=== PATIENT | male | born 1935 | race Caucasian/White ===

== ENCOUNTER 2017-12-25 02:28 | Outpatient (CLI) | payer MEDICARE | END 2017-12-25 02:29 | disposition critical access hospital (66) | LOC: EMS 02:28 | PROVIDERS: ATTEND Surgery | DX: R07.9 Chest pain, unspecified (principal) | CPT/HCPCS: A0425; A0427 ==

== ENCOUNTER 2017-12-25 02:39 | Inpatient (IN) | payer MEDICARE ==
--- NOTE | 2017-12-25 03:07 | ED Physician Documentation ---
PD HPI CHEST PAIN - Stated complaint Stated Complaint: WEAKNESS, DIZZY, CHEST PX - Chief complaint Chief Complaint: Cardiac - History obtained from History obtained from: Patient, EMS - History of Present Illness Timing - onset: Today Timing - onset during: Light activity, Exertion Timing - details: Gradual onset, Still present Quality: Pressure, Tightness Location: Substernal Worsened by: Exertion Similar symptoms before: Work up / diagnostics, Treatment Recently seen: Not recently seen - Additional information Additional information: Patient is an 86 year old male with a history of htn and a pacemaker in place who is presenting to the emergency department for chest pain and htn. According to patient and ems patient had fallen a few weeks ago and gets intermittent pain. Patient states that tonight he was cleaning his floors when he developed pain in his chest. Patient went to bed and took some aspirin. Patient states that he was unable to sleep and was feeling weak so he took his blood pressure which was elevated. Patient called ems. ems treated the patient with nitroglycerin which helped the pain slightly. Review of Systems Constitutional: denies: Fever, Chills Eyes: reports: Reviewed and negative Ears: reports: Reviewed and negative Nose: reports: Reviewed and negative Cardiac: reports: Chest pain / pressure, Palpitations, Pedal edema Respiratory: denies: Dyspnea, Cough GI: denies: Nausea, Vomiting : reports: Reviewed and negative Neurologic: reports: Generalized weakness. denies: Focal weakness PD PAST MEDICAL HISTORY - Past Medical History Cardiovascular: Hypertension, Atrial fibrillation, Other Respiratory: None Endocrine/Autoimmune: Other GI: Other : Benign prostate hypertrophy HEENT: Chronic hearing loss, Other Psych: None Musculoskeletal: Osteoarthritis Derm: Other - Past Surgical History Past Surgical History: Yes General: Appendectomy, Colonoscopy Ortho: Arthroscopic surgery Cardiovascular: Pacemaker HEENT: Tonsil/Adenoidectomy - Present Medications Home Medications: Ambulatory Orders Medication Instructions Recorded Confirmed Lisinopril [Zestril] 20 mg PO QPM 05/09/13 02/23/15 Triamterene/Hydrochlorothiazid 1 each PO QAM 05/09/13 02/23/15 [Triamterene-Hctz 37.5-25 mg Tb] amLODIPine [Norvasc] 10 mg PO DAILY 01/07/14 02/23/15 Isosorbide Mononitrate [Isosorbide 30 mg PO DAILY 04/28/14 02/23/15 Mononitrate ER] Finasteride 5 mg PO DAILY 02/19/15 02/23/15 Metoprolol Succinate [Toprol Xl] 25 mg PO DAILY 02/19/15 02/23/15 - Allergies Allergies/Adverse Reactions: Allergies Allergy/AdvReac Type Severity Reaction Status Date / Time penicillin G Allergy Intermediate Rash Verified 12/25/17 02:47 losartan [Losartan] AdvReac Itching Verified 12/25/17 02:47 adhesives Allergy Intermediate Itching Uncoded 12/25/17 02:47 - Social History Does the pt smoke?: No Smoking Status: Never smoker Does the pt drink ETOH?: Yes Does the pt have substance abuse?: No - Immunizations Immunizations are current?: Yes - POLST Patient has POLST: No PD ED PE NORMAL - Vitals Vital signs reviewed: Yes - General General: Alert and oriented X 3, No acute distress - HEENT HEENT: Atraumatic - Neck Neck: Supple, no meningeal sign, No JVD - Respiratory Respiratory: No respiratory distress - Abdomen Abdomen: Soft, Non tender, Non distended - Derm Derm: Normal color PD ED PE EXPANDED - Cardiac Cardiac: Regular Rate, Other (pacemaker in place) - Extremities Extremities: Pedal edema bilateral Results - Vitals Vitals: Vital Signs - 24 hr 12/25/17 12/25/17 12/25/17 02:40 03:00 03:15 Temperature 36.3 C L Heart Rate 66 61 60 Respiratory 16 16 16 Rate Blood Pressure 189/115 H 169/97 H 166/98 H O2 Saturation 93 93 93 12/25/17 12/25/17 03:40 04:06 Temperature Heart Rate 65 61 Respiratory 16 16 Rate Blood Pressure 129/90 H 166/82 H O2 Saturation 91 L 94 Oxygen O2 Source Room air - EKG (time done) 0248 Rate: Rate (enter#) (63) Rhythm: Paced - Labs Labs: Laboratory Tests 12/25/17 12/25/17 12/25/17 03:00 03:00 03:00 WBC 5.9 RBC 4.25 L Hgb 14.5 Hct 42.4 MCV 99.8 H MCH 34.0 H MCHC 34.1 RDW 12.8 Plt Count 169 MPV 9.0 Neut # (Auto) 2.6 Lymph # (Auto) 2.1 [place] # (Auto) 0.6 Eos # (Auto) 0.4 Baso # (Auto) 0.1 Absolute Nucleated RBC 0.00 Nucleated RBC % 0.0 D-Dimer Sodium 132 L Potassium 3.3 L Chloride 96 L Carbon Dioxide 26 Anion Gap 10.0 BUN 22 H Creatinine 1.1 Estimated GFR (MDRD) 64 L Glucose 101 H Calcium 8.8 Total Bilirubin 1.2 H AST 36 ALT 39 Alkaline Phosphatase 68 Troponin I < 0.04 B-Natriuretic Peptide Total Protein 6.6 L Albumin 3.9 Globulin 2.7 Albumin/Globulin Ratio 1.4 Lipase 25 12/25/17 12/25/17 03:00 03:00 WBC RBC Hgb Hct MCV MCH MCHC RDW Plt Count MPV Neut # (Auto) Lymph # (Auto) [place] # (Auto) Eos # (Auto) Baso # (Auto) Absolute Nucleated RBC Nucleated RBC % D-Dimer 212.5 Sodium Potassium Chloride Carbon Dioxide Anion Gap BUN Creatinine Estimated GFR (MDRD) Glucose Calcium Total Bilirubin AST ALT Alkaline Phosphatase Troponin I B-Natriuretic Peptide 286 H Total Protein Albumin Globulin Albumin/Globulin Ratio Lipase - Rads (name of study) chest x-ray Radiology: Final report received (normal) PD MEDICAL DECISION MAKING - ED course Complexity details: reviewed old records, reviewed results, re-evaluated patient , d/w patient ED course: Patient was seen and examined at bedside. ekg was performed which showed a paced rhythm. labs were drawn. chest x-ray was ordered. Patient had already taken aspirin. additional nitro was ordered for the patient. Patient's diagnostics were within normal limits. That being said patient had a heart score of 5 and was appropriate for further care. Case was discussed with the hospitalist and patient was admitted for further evaluation and care. Departure - Departure Disposition: ED Place in Observation Clinical Impression: Chest pain Condition: Good
[2017-12-25] MEDS ORDERED: NITROGLYCERIN SL 0.4 MG TABLET SL STA (03:10)
[2017-12-25 03:13] LABS: BASOPHILS # (AUTO) 0.1 10^3/uL (0.0-0.1); BASOPHILS % (AUTO) 1.2 %; EOSINOPHILS # (AUTO) 0.4 10^3/uL (0.0-0.7); EOSINOPHILS % (AUTO) 7.3 %; HGB - HEMOGLOBIN 14.5 g/dL (14.0-18.0); LYMPHOCYTES # (AUTO) 2.1 10^3/uL (1.5-3.5); LYMPHOCYTES % (AUTO) 36.5 %; MEAN CORPUSCULAR HGB CONC 34.1 g/dL (32.0-36.0); MEAN CORPUSCULAR VOLUME 99.8 fL (80.0-94.0); MONOCYTES # (AUTO) 0.6 10^3/uL (0.0-1.0); MONOCYTES % (AUTO) 9.9 %; NEUTROPHILS # (AUTO) 2.6 10^3/uL (1.5-6.6); NEUTROPHILS % (AUTO) 45.1 %; PLT - PLATELET COUNT 169 10^3/uL (130-450); RED BLOOD COUNT 4.25 10^6/uL (4.70-6.10); RED CELL DISTRIBUTION WIDTH 12.8 % (12.0-15.0); WHITE BLOOD COUNT 5.9 x10^3/uL (4.8-10.8)
--- NOTE | 2017-12-25 03:15 | XRAY Preliminary Report ---
Exam: XR CHEST 1 VIEW X-RAY IMPRESSION: No evidence of acute cardiopulmonary disease. [facility] SITE ID: [id number]
--- NOTE | 2017-12-25 03:16 | XRAY Report ---
EXAM: CHEST RADIOGRAPHY EXAM DATE: 12/25/2017 03:02 AM. CLINICAL HISTORY: Chest pain. COMPARISON: 04/28/2014. TECHNIQUE: 1 view. FINDINGS: Lungs/Pleura: No focal opacities evident. No pleural effusion. No pneumothorax. Mediastinum: Within exam limitations, the cardiomediastinal contour is normal. Other: New left subclavian pacemaker. IMPRESSION: No evidence of acute cardiopulmonary disease. [facility] Referring Provider Line: [phone] SITE ID: [id number]
[2017-12-25 03:23] LABS: ALBUMIN 3.9 g/dL (3.2-5.5); ALBUMIN/GLOBULIN RATIO 1.4 (1.0-2.2); BILIRUBIN,TOTAL 1.2 mg/dL (0.2-1.0); CALCIUM 8.8 mg/dL (8.5-10.3); CREATININE 1.1 mg/dL (0.6-1.2); TOTAL PROTEIN 6.6 g/dL (6.7-8.2)
[2017-12-25] MEDS ORDERED: PROCHLORPERAZINE 10 MG/2 ML VIAL IVP PRN (03:53)
[2017-12-25] MEDS ORDERED: ONDANSETRON 4 MG/2 ML VIAL IVP PRN (03:53)
[2017-12-25] MEDS ORDERED: MORPHINE 2 MG/ML SYRINGE IVP PRN (03:53)
[2017-12-25] MEDS ORDERED: NITROGLYCERIN SL 0.4 MG TABLET SL PRN (03:53)
[2017-12-25] MEDS ORDERED: SODIUM CHLORIDE FLUSH 0.9% 10 ML SYRINGE IVP PRN (03:53)
[2017-12-25] MEDS ORDERED: ZOLPIDEM 5 MG TABLET PO PRN (03:53)
[2017-12-25] MEDS ORDERED: PROMETHAZINE 25 MG/1 ML VIAL IM PRN (03:53)
[2017-12-25] MEDS ORDERED: ACETAMINOPHEN 325 MG TABLET PO PRN (03:53)
[2017-12-25] MEDS ORDERED: NS W/20 MEQ KCL 1,000 ML IV SCH (04:00)
--- NOTE | 2017-12-25 04:01 | HISTORY & PHYSICAL EXAMINATION ---
Chief Complaint - Chief Complaint Chief Complaint: Chest pain History of Present Illness - Admitted From Admitted From:: Emergency Department - History Obtained From Records Reviewed: Yes History obtained from: Patient Exam Limitations: None - History of Present Illness HPI Comment/Other: Patient is a very pleasant 82-year-old gentleman with a past medical history significant for hypertension, status post pacemaker due to bradycardia, BPH, atrial fibrillation on Pradaxa and vertigo who presented to the emergency department with a chief complaint of chest pain. The patient states that on December 11 he had a fall due to feeling vertigo and having difficulty with his balance. He states that he fell on his chest and thinks he may have sprained a muscle or hurt her rib. He states that since then he has been experiencing pain in the lower chest wall on the left side near 1 of his ribs. He states that the pain has been getting better over the last 2 weeks or so. He states that today he was scrubbing the floor when he noticed that the chest pain became more pronounced. He states that when he tried to get up he felt very weak and just did not feel right. He denies any radiation of the pain, he denies any associated shortness of breath, denies any nausea, he denies any diaphoresis and denies any palpitations. He states that he then checked his blood pressure and it was very elevated at 180/110. He states he then decided to take an aspirin and for nitroglycerin. He states he tried to go to bed hoping that the pain and funny feeling would resolve. He states that he could not sleep thinking whether he should go to the emergency department. He finally decided to call 911. The patient states that his chest pain persisted and even after EMS arrived and he received several more doses of nitroglycerin his pain did not completely resolve but he did feel that it improved slightly. He states that the chest pain was probably only a 4 out of 5 out of 10 at its worst. He describes the pain as a dull pain. He states that it still there when he takes a deep breath but states that at this point it is almost gone. Patient admits to a headache after receiving many doses of nitroglycerin. Denies any blurred vision, runny nose, sore throat, nasal congestion, difficulty swallowing, shortness of air, cough, fevers, chills, orthopnea, PND, increased lower extremity swelling, abdominal pain, nausea, vomiting, diarrhea, constipation, urinary urgency, dysuria, joint pain, joint swelling, muscle aches , back pain, neck stiffness, skin rash, hair loss, polyuria, polydipsia, night sweats, recent unintentional weight loss, changes in his appetite or any focal neurologic deficits. On presentation to the emergency department the patient was afebrile he did not appear to be in any respiratory distress but was hypertensive with blood pressure of 189/115. The patient was given a dose of nitroglycerin in the emergency department and slowly the patient's blood pressure did improve down to 129/90. The patient underwent a EKG which compared to his EKG from 4 years ago showed some T-wave inversions and flattening in the anterior leads. Otherwise the EKG was paced. The patient's lab work revealed a normal d-dimer, normal CBC, slightly decreased potassium and a mild hyponatremia. The patient had a negative troponin. Given the patient's risk factors of age and hypertension it was felt that the patient should be placed in observation for rule out of acute coronary syndrome and stress test. History - Past Medical History Cardiovascular: reports: Hypertension, Atrial fibrillation, Other Respiratory: reports: None Endocrine/Autoimmune: reports: Other GI: reports: Other : reports: Benign prostate hypertrophy HEENT: reports: Chronic hearing loss, Other Psych: reports: None Musculoskeletal: reports: Osteoarthritis Derm: reports: Other MRSA Hx?: No - Past Surgical History General: reports: Appendectomy, Colonoscopy Ortho: reports: Arthroscopic surgery Cardiovascular: reports: Pacemaker HEENT: reports: Tonsil/Adenoidectomy - Family & Social History Family History: Mother: , CVA/TIA, Hypertension, Father: , CAD Living arrangement: At home Living Situation: Alone Social History Notes: Patient lives alone in [place], [place]. He spent 6 months of the year here and 6 months of the year in [facility] where [place]. The patient has 1 son who lives in [place]. He is . He is fully independent and still quite active. He smoked cigarettes for very short period of time and quit many years ago. He drinks a glass of wine rarely and denies any illicit drug use. - POLST Patient has POLST: No POLST Status: DNR Meds/Allgy - Home Medications Home Medications: Ambulatory Orders Medication Instructions Recorded Confirmed Lisinopril [Zestril] 20 mg PO QPM 05/09/13 02/23/15 Triamterene/Hydrochlorothiazid 1 each PO QAM 05/09/13 02/23/15 [Triamterene-Hctz 37.5-25 mg Tb] amLODIPine [Norvasc] 10 mg PO DAILY 01/07/14 02/23/15 Isosorbide Mononitrate [Isosorbide 30 mg PO DAILY 04/28/14 02/23/15 Mononitrate ER] Finasteride 5 mg PO DAILY 02/19/15 02/23/15 Metoprolol Succinate [Toprol Xl] 25 mg PO DAILY 02/19/15 02/23/15 - Allergies Allergies/Adverse Reactions: Allergies Allergy/AdvReac Type Severity Reaction Status Date / Time penicillin G Allergy Intermediate Rash Verified 12/25/17 02:47 losartan [Losartan] AdvReac Itching Verified 12/25/17 02:47 adhesives Allergy Intermediate Itching Uncoded 12/25/17 02:47 Review of Systems - Other Findings Other Findings: A comprehensive review of systems was performed the pertinent positives and negatives are stated above in the HPI and the remainder of the review of systems is negative. Exam - Vital Signs Reviewed Vital Signs: Yes Vital Signs: Vital Signs x48h Temp Pulse Resp BP Pulse Ox 12/25/17 03:40 65 16 129/90 H 91 L 12/25/17 03:15 60 16 166/98 H 93 12/25/17 03:00 61 16 169/97 H 93 12/25/17 02:40 36.3 C L 66 16 189/115 H 93 - Physical Exam General Appearance: positive: No acute distress, Alert Eyes Bilateral: positive: Normal inspection, PERRL, No lid inflammation, Conjunctivae nml, No scleral icterus ENT: positive: ENT inspection nml, Pharynx nml, Dry mucous membranes. negative : Purulent nasal drainage, Pharyngeal erythema, Oral lesions Neck: positive: Nml inspection, Thyroid nml, No JVD, Trachea midline Respiratory: positive: No respiratory distress, Breath sounds nml Cardiovascular: positive: Regular rate & rhythm, No murmur, No gallop, Other ( Patient has chest wall tenderness in the left lower ribs) Peripheral Pulses: positive: 2+ Abdomen: positive: Non-tender, No organomegaly, Nml bowel sounds, No distention Back: positive: Nml inspection. negative: CVA tenderness (R), CVA tenderness (L ) Skin: positive: Color nml, No rash, Warm, Dry Extremities: positive: Non-tender, Full ROM, Nml appearance Neurologic/Psychiatric: positive: Oriented x3, CN's nml (2-12), Motor nml, Sensation nml, Mood/affect nml Conclusion/Plan - Problem List (1) Chest pain Conclusion/Plan: Patient presented with chest pain with exertion and feeling of generalized weakness while scrubbing the floor. The patient did state that he had a fall 2 weeks earlier and fell on his chest and has had pain in a similar area of his chest for the last 2 weeks and this was very similar to the pain that he felt when scrubbing the floor. He denied any associated shortness of breath or diaphoresis. The patient's initial EKG did show some mild nonspecific changes from previous EKG 4 years ago and troponin was negative. The patient's pain did improve with several doses of nitroglycerin. Given his age and risk factor hypertension this was concerning enough that we felt the patient needed to be placed in observation for rule out of ACS. It is possible that the patient's pain could have been due to his hypertension or could have been due to musculoskeletal pain from his previous fall but risk was too high therefore he was placed in observation. Plan: Troponins 3 Telemetry monitoring Aspirin and Lipitor Lipid profile Echocardiogram Stress test in the a.m. N.p.o. for stress test Qualifiers: Chest pain type: unspecified Qualified Code(s): R07.9 - Chest pain, unspecified (2) Hypertension Conclusion/Plan: Patient has history of hypertension and had significantly elevated blood pressure on presentation. Patient's blood pressure was elevated to 189/115. Patient's blood pressure did improve with nitroglycerin. Patient's symptoms also improved with improvement in his blood pressure. It is possible that the patient's chest pain could be secondary to his elevated blood pressure. We will treat his blood pressure by continuing his home medications and monitoring his blood pressure we may need to titrate medications during the hospitalization. Qualifiers: Hypertension type: essential hypertension Qualified Code(s): I10 - Essential (primary) hypertension (3) Atrial fibrillation Conclusion/Plan: Patient states that he has a history of atrial fibrillation which was noted on his pacemaker reading by his reconditioner. The patient is on Toprol-XL for rate control and Pradaxa for anticoagulation. Plan: Telemetry monitoring Continue Pradaxa Continue metoprolol Qualifiers: Atrial fibrillation type: chronic Qualified Code(s): I48.2 - Chronic atrial fibrillation (4) Hyponatremia Conclusion/Plan: Patient presented with hyponatremia with a sodium of 132. Patient appear to have hypovolemic hyponatremia. Patient placed on IV fluids and will monitor sodium daily. (5) Hypokalemia Conclusion/Plan: Patient had mild hypokalemia on presentation with a potassium of 3.2. Patient likely has hyponatremia secondary to hydrochlorothiazide. The patient however did also appear to be slightly dehydrated therefore he is given IV fluids and potassium replacement. - Lab Results Lab results reviewed: Yes Fish Bones: 12/25/17 03:00 12/25/17 03:00 Other Lab Results: Laboratory Results WBC 5.9 x10^3/uL (4.8-10.8) 12/25/17 03:00 RBC 4.25 10^6/uL (4.70-6.10) L 12/25/17 03:00 Hgb 14.5 g/dL (14.0-18.0) 12/25/17 03:00 Hct 42.4 % (42.0-52.0) 12/25/17 03:00 MCV 99.8 fL (80.0-94.0) H 12/25/17 03:00 MCH 34.0 pg (27.0-31.0) H 12/25/17 03:00 MCHC 34.1 g/dL (32.0-36.0) 12/25/17 03:00 RDW 12.8 % (12.0-15.0) 12/25/17 03:00 Plt Count 169 10^3/uL (130-450) 12/25/17 03:00 MPV 9.0 fL (7.4-11.4) 12/25/17 03:00 Neut # (Auto) 2.6 10^3/uL (1.5-6.6) 12/25/17 03:00 Lymph # (Auto) 2.1 10^3/uL (1.5-3.5) 12/25/17 03:00 [place] # (Auto) 0.6 10^3/uL (0.0-1.0) 12/25/17 03:00 Eos # (Auto) 0.4 10^3/uL (0.0-0.7) 12/25/17 03:00 Baso # (Auto) 0.1 10^3/uL (0.0-0.1) 12/25/17 03:00 Absolute Nucleated RBC 0.00 x10^3/uL 12/25/17 03:00 Nucleated RBC % 0.0 /100WBC 12/25/17 03:00 D-Dimer 212.5 ng/mL (200.0-255.0) 12/25/17 03:00 Sodium 132 mmol/L (135-145) L 12/25/17 03:00 Potassium 3.3 mmol/L (3.5-5.0) L 12/25/17 03:00 Chloride 96 mmol/L (101-111) L 12/25/17 03:00 Carbon Dioxide 26 mmol/L (21-32) 12/25/17 03:00 Anion Gap 10.0 (6-13) 12/25/17 03:00 BUN 22 mg/dL (6-20) H 12/25/17 03:00 Creatinine 1.1 mg/dL (0.6-1.2) 12/25/17 03:00 Estimated GFR (MDRD) 64 (>89) L 12/25/17 03:00 Glucose 101 mg/dL (70-100) H 12/25/17 03:00 Calcium 8.8 mg/dL (8.5-10.3) 12/25/17 03:00 Total Bilirubin 1.2 mg/dL (0.2-1.0) H 12/25/17 03:00 AST 36 IU/L (10-42) 12/25/17 03:00 ALT 39 IU/L (10-60) 12/25/17 03:00 Alkaline Phosphatase 68 IU/L (42-121) 12/25/17 03:00 Troponin I < 0.04 ng/mL (<0.49) 12/25/17 03:00 B-Natriuretic Peptide 286 pg/mL (5-100) H 12/25/17 03:00 Total Protein 6.6 g/dL (6.7-8.2) L 12/25/17 03:00 Albumin 3.9 g/dL (3.2-5.5) 12/25/17 03:00 Globulin 2.7 g/dL (2.1-4.2) 12/25/17 03:00 Albumin/Globulin Ratio 1.4 (1.0-2.2) 12/25/17 03:00 Lipase 25 U/L (22-51) 12/25/17 03:00 - Diagnostic Imaging Results Diagnostic Imaging Results: positive: Final report reviewed Diagnostic Imaging Results Comments: Chest x-ray Impression: No evidence of acute cardiopulmonary disease - EKG Results EKG Interpreted Independently: Yes EKG Findings: Paced with no ST elevations compared to previous EKG the patient does have some T-wave inversion in V4 and T-wave flattening in V5 along with T-wave inversion in V3. These are nonspecific changes. Core Measures - Anticipated LOS I expect patient to be DC'd or transferred within 96 hours.: Yes - DVT/VTE - Prophylaxis VTE/DVT Device ordered at admit?: Yes
[2017-12-25] MEDS: DABIGATRAN 75 MG CAPSULE PO SCH ×2 (05:39→21:34)
[2017-12-25] MEDS: SODIUM CHLORIDE FLUSH 0.9% 10 ML SYRINGE IVP SCH ×2 (07:22→17:31)
[2017-12-25] MEDS: ASPIRIN EC 81 MG TABLET PO SCH (07:58)
[2017-12-25] MEDS: FINASTERIDE 5 MG TABLET PO SCH (07:58)
[2017-12-25] MEDS: POLYETHYLENE GLYCOL 3350 17 GM PACKET PO SCH (07:59)
[2017-12-25] MEDS ORDERED: amLODIPine 5 MG TABLET PO SCH (09:00)
[2017-12-25] MEDS ORDERED: TRIAMT/HCTZ 37.5 MG/25 MG CAPSULE PO SCH (09:00)
[2017-12-25] MEDS ORDERED: ENOXAPARIN 40 MG/0.4 ML SYRINGE SUBQ SCH (09:00)
[2017-12-25] MEDS ORDERED: ISOSORBIDE MONONITRATE ER 30 MG TABLET PO SCH ×2 (09:00→09:30)
[2017-12-25] MEDS ORDERED: FAMOTIDINE 20 MG TABLET PO SCH (09:00)
[2017-12-25] MEDS ORDERED: METOPROLOL SUCCINATE 25 MG TABLET PO SCH ×2 (09:00→18:00)
[2017-12-25 09:02] LABS: ALBUMIN 4.1 g/dL (3.2-5.5); ALBUMIN/GLOBULIN RATIO 1.7 (1.0-2.2); ALKALINE PHOSPHATASE 66 IU/L (42-121); ALT ALANINE AMINOTRANSFERASE 37 IU/L (10-60); AST ASPARTATE AMINOTRANSFERASE 31 IU/L (10-42); BILIRUBIN,TOTAL 1.3 mg/dL (0.2-1.0); BUN - BLOOD UREA NITROGEN 21 mg/dL (6-20); CALCIUM 8.6 mg/dL (8.5-10.3); CARBON DIOXIDE - CO2 27 mmol/L (21-32); CHLORIDE 95 mmol/L (101-111); CHOL/HDL RATIO 3.8 (<5.0); CHOLESTEROL 141 mg/dL; CREATININE 1.2 mg/dL (0.6-1.2); GFR - MDRD 58 (>89); GLUCOSE 95 mg/dL (70-100); HDL CHOLESTEROL 37 mg/dL; LDL CHOLESTEROL,CALCULATED 89 mg/dL; LDL/HDL RATIO 2.4 (<3.6); SODIUM 132 mmol/L (135-145); TOTAL PROTEIN 6.5 g/dL (6.7-8.2); VLDL CHOLESTEROL 15 mg/dL
[2017-12-25 09:11] LABS: BASOPHILS % (AUTO) 0.7 %; EOSINOPHILS # (AUTO) 0.3 10^3/uL (0.0-0.7); HGB - HEMOGLOBIN 14.8 g/dL (14.0-18.0); LYMPHOCYTES # (AUTO) 1.7 10^3/uL (1.5-3.5); LYMPHOCYTES % (AUTO) 30.7 %; MEAN CORPUSCULAR HGB CONC 35.1 g/dL (32.0-36.0); MEAN CORPUSCULAR VOLUME 99.8 fL (80.0-94.0); MEAN PLATELET VOLUME 9.3 fL (7.4-11.4); MONOCYTES # (AUTO) 0.5 10^3/uL (0.0-1.0); MONOCYTES % (AUTO) 8.7 %; NEUTROPHILS # (AUTO) 3.1 10^3/uL (1.5-6.6); NEUTROPHILS % (AUTO) 54.9 %; PLT - PLATELET COUNT 160 10^3/uL (130-450); RED BLOOD COUNT 4.22 10^6/uL (4.70-6.10); RED CELL DISTRIBUTION WIDTH 13.1 % (12.0-15.0); WHITE BLOOD COUNT 5.6 x10^3/uL (4.8-10.8)
[2017-12-25] MEDS ORDERED: hydrALAZINE 25 MG TABLET PO SCH (10:00)
[2017-12-25] MEDS: hydrALAZINE 25 MG TABLET PO SCH ×4 (10:15→21:34)
[2017-12-25] MEDS ORDERED: REGADENOSON 0.4 MG/5 ML SYRINGE IVP ONE (10:41)
[2017-12-25] MEDS ORDERED: IOPAMIDOL-300 100 ML VIAL ONE (11:43)
--- NOTE | 2017-12-25 11:49 | PROVIDER PROGRESS NOTE ---
Subjective - Prog Note Date Prog Note Date: 12/25/17 Prog Note Time: 12:00 - Subjective Pt reports feeling: No change Subjective: Rufus complains of his primary problem of "high blood pressure". He denies SOB, ongoing or new chest pain, fever, chills, nausea, or vomiting. Current Medications - Current Medications Current Medications: Active Medications Acetaminophen (Tylenol) 650 mg PO Q4HR PRN PRN Reason: Pain 1 to 4 Amlodipine Besylate (Norvasc) 10 mg PO DAILY [facility] Last Admin: 12/25/17 07:58 Dose: 10 mg Aspirin (Ecotrin) 81 mg PO DAILY [facility] Last Admin: 12/25/17 07:58 Dose: 81 mg Atorvastatin Calcium (Lipitor) 80 mg PO QPM [facility] Dabigatran (Pradaxa) 150 mg PO BID [facility] Last Admin: 12/25/17 05:39 Dose: 150 mg Famotidine (Pepcid) 20 mg PO DAILY [facility] Last Admin: 12/25/17 07:58 Dose: 20 mg Finasteride (Proscar) 5 mg PO DAILY [facility] Last Admin: 12/25/17 07:58 Dose: 5 mg Hydralazine HCl (Apresoline) 25 mg PO QID [facility] Last Admin: 12/25/17 10:15 Dose: 25 mg Isosorbide Mononitrate (Imdur) 30 mg PO DAILY [facility] Lisinopril (Zestril) 20 mg PO QPM [facility] Metoprolol Succinate (Toprol Xl) 25 mg PO DAILY [facility] Last Admin: 12/25/17 07:58 Dose: 25 mg Morphine Sulfate (Morphine) 2 mg IVP Q5M PRN PRN Reason: Chest pain Nitroglycerin (Nitrostat) 0.4 mg SL Q5MIN PRN PRN Reason: Chest Pain Ondansetron HCl (Zofran Inj) 4 mg IVP Q6HR PRN PRN Reason: Nausea / Vomiting Polyethylene Glycol (Miralax) 17 gm PO DAILY [facility] Last Admin: 12/25/17 07:59 Dose: Not Given Prochlorperazine Edisylate (Compazine Inj) 10 mg IVP Q6HR PRN PRN Reason: Nausea / Vomiting Promethazine HCl (Phenergan Inj) 25 mg IM Q6HR PRN PRN Reason: Nausea / Vomiting Sodium Chloride (Normal Saline Flush 0.9%) 10 ml IVP PRN PRN PRN Reason: NEEDED PER PROVIDER ORDERS Last Admin: 12/25/17 05:17 Dose: 10 ml Sodium Chloride (Normal Saline Flush 0.9%) 10 ml IVP 0100,0900,1700 [facility] Last Admin: 12/25/17 07:22 Dose: Not Given Triamterene/HCTZ (Dyazide) 1 cap PO DAILY [facility] Last Admin: 12/25/17 07:58 Dose: 1 cap Zolpidem Tartrate (Ambien) 5 mg PO QPM PRN PRN Reason: Insomnia Lisinopril [Zestril] 40 mg PO BID 05/09/13 Triamterene/Hydrochlorothiazid [Triamterene-Hctz 37.5-25 mg Tb] 1 each PO QAM Isosorbide Mononitrate [Isosorbide Mononitrate ER] 30 mg PO DAILY 04/28/14 Finasteride 5 mg PO DAILY 02/19/15 Metoprolol Succinate 50 mg PO BID 12/25/17 Nitroglycerin [Nitrostat] 0.4 mg SL Q5MIN PRN 12/25/17 Omeprazole 20 mg PO DAILY PRN 12/25/17 Objective - Vital Signs/Intake & Output Reviewed Vital Signs: Yes Vital Signs: Vital Signs x48h Temp Pulse Pulse Resp BP BP Pulse Ox 12/25/17 10:15 59 L 146/85 H 12/25/17 07:52 36.3 C L 61 18 193/111 H 96 12/25/17 06:00 60 173/89 H 12/25/17 05:15 36.6 C 106 H 18 209/98 H 96 12/25/17 04:06 61 16 166/82 H 94 Intake & Output: Intake & Output 12/22/17 12/23/17 12/24/17 12/25/17 23:59 23:59 23:59 23:59 Intake Total 643.333 Output Total 250 Balance 393.333 - Objective General Appearance: positive: No acute distress, Alert Eyes Bilateral: positive: Normal inspection, PERRL Eyes: OU Conjunctivae pale ENT: positive: ENT inspection nml, Pharynx nml, No signs of dehydration Neck: positive: Nml inspection, Thyroid nml, No JVD, Trachea midline Respiratory: positive: Chest non-tender, No respiratory distress, Breath sounds nml Cardiovascular: positive: No gallop, Irregularly irregular, Systolic murmur, Decreased pulse(s) Peripheral Pulses: 1+ Radial (R), 1+ Radial (L) Abdomen: positive: Non-tender, No organomegaly, Nml bowel sounds, Other (rounded , soft.) Back: positive: Nml inspection Skin: positive: No rash, Warm, Dry Extremities: positive: Non-tender, Full ROM, Pedal edema, Joint swelling Neurologic/Psychiatric: positive: Oriented x3, CN's nml (2-12), Motor nml, Sensation nml Reflexes: Bicep (R): 3+, Bicep (L): 3+ - Lab Results Fish Bones: 12/25/17 08:30 12/25/17 08:30 Other Labs: Lab Results x24hrs 12/25/17 12/25/17 12/25/17 Range/Units 08:30 08:30 08:30 WBC (4.8-10.8) x10^3/uL RBC (4.70-6.10) 10^6/uL Hgb (14.0-18.0) g/dL Hct (42.0-52.0) % MCV (80.0-94.0) fL MCH (27.0-31.0) pg MCHC (32.0-36.0) g/dL RDW (12.0-15.0) % Plt Count (130-450) 10^3/uL MPV (7.4-11.4) fL Neut # (Auto) (1.5-6.6) 10^3/uL Lymph # (Auto) (1.5-3.5) 10^3/uL [place] # (Auto) (0.0-1.0) 10^3/uL Eos # (Auto) (0.0-0.7) 10^3/uL Baso # (Auto) (0.0-0.1) 10^3/uL Absolute Nucleated RBC x10^3/uL Nucleated RBC % /100WBC Sodium 132 L (135-145) mmol/L Potassium 3.5 (3.5-5.0) mmol/L Chloride 95 L (101-111) mmol/L Carbon Dioxide 27 (21-32) mmol/L Anion Gap 10.0 (6-13) BUN 21 H (6-20) mg/dL Creatinine 1.2 (0.6-1.2) mg/dL Estimated GFR (MDRD) 58 L (>89) Glucose 95 (70-100) mg/dL Calcium 8.6 (8.5-10.3) mg/dL Total Bilirubin 1.3 H (0.2-1.0) mg/dL AST 31 (10-42) IU/L ALT 37 (10-60) IU/L Alkaline Phosphatase 66 (42-121) IU/L Troponin I < 0.04 (<0.49) ng/mL B-Natriuretic Peptide 301 H (5-100) pg/mL Total Protein 6.5 L (6.7-8.2) g/dL Albumin 4.1 (3.2-5.5) g/dL Globulin 2.4 (2.1-4.2) g/dL Albumin/Globulin Ratio 1.7 (1.0-2.2) Triglycerides 77 ( - 149) mg/dL Cholesterol 141 ( - 199) mg/dL LDL Cholesterol, Calc 89 ( - 129) mg/dL VLDL Cholesterol 15 mg/dL HDL Cholesterol 37 L (60 - ) mg/dL LDL/HDL Ratio 2.4 (<3.6) Cholesterol/HDL Ratio 3.8 (<5.0) 06/05/18 Range/Units 08:30 WBC 5.6 (4.8-10.8) x10^3/uL RBC 4.22 L (4.70-6.10) 10^6/uL Hgb 14.8 (14.0-18.0) g/dL Hct 42.1 (42.0-52.0) % MCV 99.8 H (80.0-94.0) fL MCH 35.0 H (27.0-31.0) pg MCHC 35.1 (32.0-36.0) g/dL RDW 13.1 (12.0-15.0) % Plt Count 160 (130-450) 10^3/uL MPV 9.3 (7.4-11.4) fL Neut # (Auto) 3.1 (1.5-6.6) 10^3/uL Lymph # (Auto) 1.7 (1.5-3.5) 10^3/uL [place] # (Auto) 0.5 (0.0-1.0) 10^3/uL Eos # (Auto) 0.3 (0.0-0.7) 10^3/uL Baso # (Auto) 0.0 (0.0-0.1) 10^3/uL Absolute Nucleated RBC 0.00 x10^3/uL Nucleated RBC % 0.1 /100WBC Sodium (135-145) mmol/L Potassium (3.5-5.0) mmol/L Chloride (101-111) mmol/L Carbon Dioxide (21-32) mmol/L Anion Gap (6-13) BUN (6-20) mg/dL Creatinine (0.6-1.2) mg/dL Estimated GFR (MDRD) (>89) Glucose (70-100) mg/dL Calcium (8.5-10.3) mg/dL Total Bilirubin (0.2-1.0) mg/dL AST (10-42) IU/L ALT (10-60) IU/L Alkaline Phosphatase (42-121) IU/L Troponin I (<0.49) ng/mL B-Natriuretic Peptide (5-100) pg/mL Total Protein (6.7-8.2) g/dL Albumin (3.2-5.5) g/dL Globulin (2.1-4.2) g/dL Albumin/Globulin Ratio (1.0-2.2) Triglycerides ( - 149) mg/dL Cholesterol ( - 199) mg/dL LDL Cholesterol, Calc ( - 129) mg/dL VLDL Cholesterol mg/dL HDL Cholesterol (60 - ) mg/dL LDL/HDL Ratio (<3.6) Cholesterol/HDL Ratio (<5.0) - Diagnostic Imaging Diagnostic Imaging Results: positive: Final report reviewed ABX Reporting Has patient been on IV antibiotics over the past 48 hours?: No Assessment/Plan - Problem List (1) Hypertensive crisis, unspecified Impression: The patient has an extensive home medication list that includes; Metoprolol succinate BID, isosorbide, HCTZ/triamterine, lisinopril and NTG SL as needed. Plan: Add hydrolazine scheduled, monitor vital signs/symptoms. 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 He does not appear to be anticoagulated at home, although has several scattered bruised on bilateral arms. Pharmacy is verifying this. He is rate controlled with metoprolol succinate BID at home, which continues here. Plan: Continue medications and telemetry. Qualifiers: Atrial fibrillation type: chronic Qualified Code(s): I48.2 - Chronic atrial fibrillation (3) Hypertension Impression: Rufus has had elevated blood pressures since the time of admission and the last value was 193/111. A head CT to rule out stroke was completed. I was called by reading radiologist who stated that this CT was negative for evidence of stroke. A chart review shows past imaging of a renal US, which indicates previous uncontrolled B/P. He takes several medications at home including isosorbide, HCTZ/triamterene, lisinopril and metoprolol, which have all been continued here. Plan: Add hydrolazine scheduled and monitor VS. Qualifiers: Hypertension type: essential hypertension Qualified Code(s): I10 - Essential (primary) hypertension (4) Weakness Impression: The patient relates this new weakness to his elevated B/P's, but also states that he is worried about a stroke. A head CT was negative for a stroke, and I was personally called by the reading radiologist with these results. Plan: May consider a PT/OT evaluation. 2 of 3 Troponins have been negative. (5) H/O chest wall injury Impression: Rufus admits to falling at least 2 weeks ago and sustained a soft tissue injury that was quite painful at first, and now has been intermittent. He has not gotten a medical evaluation for this until this admission. He has not had any oxygen requirements and no new cough has been reported. Plan: Chest CT to rule out PE/evaluate extent of recent chest wall injury- pending. Monitor symptoms.
--- NOTE | 2017-12-25 12:03 | CT Preliminary Report ---
Exam: CT HEAD W/O STROKE PROTOCOL IMPRESSION: Generalized age-related cortical atrophic changes without evidence of acute intracranial abnormality. RADIA The above findings were discussed with SARAH Fitzpatrick by Dr. John Pearson at 12:01 hrs on 12/25/17. SITE ID: [id number]
--- NOTE | 2017-12-25 12:03 | CT Report ---
EXAM: CT HEAD EXAM DATE: 12/25/2017 11:49 AM. CLINICAL HISTORY: Hypertension. Acute neurologic deficit. COMPARISON: None. TECHNIQUE: Multiaxial CT images were obtained from the foramen magnum to the vertex. Reformats: Coron al. IV contrast: None. In accordance with CT protocol optimization, one or more of the following dose reduction techniques w ere utilized for this exam: automated exposure control, adjustment of mA and/or KV based on patient s ize, or use of iterative reconstructive technique. FINDINGS: Parenchyma: No intraparenchymal hemorrhage. No evidence of mass, midline shift, or CT findings of acu te infarction. May-white differentiation is distinct. Diffuse chronic microangiopathic white matter changes are evident. Extraaxial Spaces: Normal for age. No subdural or epidural collections identified. Ventricles: The ventricles and cortical sulci are enlarged, consistent with age-related tissue loss. Sinuses and orbits: Imaged paranasal sinuses, orbits, and mastoids show no significant abnormality. Bones: No evidence of fracture or calvarial defect. Other: None. IMPRESSION: Generalized age-related cortical atrophic changes without evidence of acute intracranial abnormality. RADIA The above findings were discussed with SARAH Fitzpatrick by Dr. John Pearson at 12:01 hrs on 12/25/17. Referring Provider Line: [phone] SITE ID: [id number]
[2017-12-25] MEDS ORDERED: METOPROLOL SUCCINATE 50 MG TABLET PO SCH (12:45)
[2017-12-25] MEDS ORDERED: IOPAMIDOL-300 100 ML VIAL IVP ONE (12:46)
[2017-12-25] MEDS ORDERED: FUROSEMIDE 20 MG TABLET PO SCH (13:00)
[2017-12-25] MEDS ORDERED: SPIRONOLACTONE 25 MG TABLET PO SCH (13:00)
--- NOTE | 2017-12-25 13:07 | CT Report ---
CT ANGIOGRAM OF THE CHEST: 12/25/2017 HISTORY: Chest pain. COMPARISON: Chest x-ray 12/25/2017. CONTRAST: 80 mL of Isovue 300. TECHNIQUE: Axial images of the chest with multiplanar reformations including MIP projections. FINDINGS: Markedly enlarged right lobe of the thyroid with mediastinal/tracheal shift to the left. No hilar, mediastinal, axillary, or supraclavicular adenopathy. No findings of pulmonary embolism. Included portions of the upper abdomen unremarkable. Hypoventilatory changes in the lungs. No pulmonary nodules, pleural effusion or focal consolidation. No aortic aneurysm or dissection. Degenerative change in the spine without bone destruction. No definite rib fracture identified. IMPRESSION: NEGATIVE FOR PULMONARY EMBOLISM. GROSSLY CLEAR LUNGS. MARKEDLY ENLARGED RIGHT LOBE OF THE THYROID. SUGGEST CORRELATION WITH THYROID ULTRASOUND. CT DOSE REDUCTION STATEMENT In accordance with CT protocol optimization, one or more of the following dose reduction techniques were utilized for this exam: automated exposure control, adjustment of mA and/or KV based on patient size, or use of iterative reconstructive technique. TD: 12/25/2017 12:37
[2017-12-25] MEDS ORDERED: METOPROLOL SUCCINATE 25 MG TABLET PO ONE (14:00)
[2017-12-25 15:34] LABS: CALCIUM 8.6 mg/dL (8.5-10.3); CREATININE 1.3 mg/dL (0.6-1.2); MAGNESIUM 1.8 mg/dL (1.7-2.8)
[2017-12-25] MEDS: MAGNESIUM OXIDE 400 MG TABLET PO SCH ×2 (17:31→21:34)
[2017-12-25] MEDS ORDERED: LISINOPRIL 20 MG TABLET PO SCH (21:00)
[2017-12-25] MEDS ORDERED: ATORVASTATIN 40 MG TABLET PO SCH (21:00)
[2017-12-25] MEDS: METOPROLOL SUCCINATE 50 MG TABLET PO SCH (21:36)
[2017-12-26 05:35] LABS: BILIRUBIN,URINE NEGATIVE (NEGATIVE); GLUCOSE, URINE (UA) NEGATIVE (NEGATIVE); KETONES,URINE (UA) NEGATIVE (NEGATIVE); LEUKOCYTE ESTERASE, URINE NEGATIVE (NEGATIVE); NITRITE,URINE NEGATIVE (NEGATIVE); OCCULT BLOOD,URINE NEGATIVE (NEGATIVE); PROTEIN,URINE NEGATIVE (NEGATIVE); UROBILINOGEN,URINE 0.2 (NORMAL) E.U./dL (NORMAL)
[2017-12-26 05:42] LABS: BASOPHILS # (AUTO) 0.1 10^3/uL (0.0-0.1); EOSINOPHILS # (AUTO) 0.3 10^3/uL (0.0-0.7); EOSINOPHILS % (AUTO) 4.7 %; HGB - HEMOGLOBIN 15.3 g/dL (14.0-18.0); LYMPHOCYTES # (AUTO) 1.7 10^3/uL (1.5-3.5); LYMPHOCYTES % (AUTO) 24.7 %; MEAN CORPUSCULAR HEMOGLOBIN 34.6 pg (27.0-31.0); MEAN CORPUSCULAR HGB CONC 34.6 g/dL (32.0-36.0); MEAN PLATELET VOLUME 9.2 fL (7.4-11.4); MONOCYTES # (AUTO) 0.7 10^3/uL (0.0-1.0); MONOCYTES % (AUTO) 9.9 %; NEUTROPHILS # (AUTO) 4.2 10^3/uL (1.5-6.6); NEUTROPHILS % (AUTO) 59.7 %; PLT - PLATELET COUNT 166 10^3/uL (130-450); RED BLOOD COUNT 4.43 10^6/uL (4.70-6.10); RED CELL DISTRIBUTION WIDTH 13.4 % (12.0-15.0)
[2017-12-26 05:45] LABS: ALBUMIN 4.1 g/dL (3.2-5.5); ALBUMIN/GLOBULIN RATIO 1.8 (1.0-2.2); BILIRUBIN,TOTAL 1.4 mg/dL (0.2-1.0); CALCIUM 8.8 mg/dL (8.5-10.3); CREATININE 1.1 mg/dL (0.6-1.2); MAGNESIUM 1.9 mg/dL (1.7-2.8); PHOSPHORUS 2.8 mg/dL (2.5-4.6); TOTAL PROTEIN 6.4 g/dL (6.7-8.2)
[2017-12-26 06:04] LABS: CLARITY,URINE CLEAR (CLEAR)
[2017-12-26] MEDS ORDERED: ISOSORBIDE MONONITRATE ER 30 MG TABLET PO SCH (07:37)
[2017-12-26] MEDS: MAGNESIUM OXIDE 400 MG TABLET PO SCH (10:04)
[2017-12-26] MEDS: POLYETHYLENE GLYCOL 3350 17 GM PACKET PO SCH (10:04)
[2017-12-26] MEDS: SPIRONOLACTONE 25 MG TABLET PO SCH ×2 (10:05→10:52)
[2017-12-26] MEDS: ASPIRIN EC 81 MG TABLET PO SCH (10:05)
[2017-12-26] MEDS: hydrALAZINE 25 MG TABLET PO SCH (10:05)
[2017-12-26] MEDS: METOPROLOL SUCCINATE 50 MG TABLET PO SCH (10:05)
[2017-12-26] MEDS: FINASTERIDE 5 MG TABLET PO SCH (10:05)
[2017-12-26] MEDS: DABIGATRAN 75 MG CAPSULE PO SCH (10:06)
[2017-12-26] MEDS: FUROSEMIDE 20 MG TABLET PO SCH ×2 (10:06→10:52)
[2017-12-26] MEDS: FELODIPINE ER 2.5 MG TABLET PO SCH ×2 (10:11→10:51)
--- NOTE | 2017-12-26 10:33 | Discharge Plan ---
Discharge Plan Disposition: Home, Self Care Condition: Good Prescriptions: Felodipine [Plendil] 2.5 mg PO DAILY #30 tablet Furosemide [Lasix] 20 mg PO DAILY #30 tablet hydrALAZINE [Apresoline] 25 mg PO BID #60 tablet Isosorbide Mononitrate ER [Imdur] 60 mg PO DAILY #30 tablet Lisinopril 20 mg PO DAILY #30 tablet Spironolactone [Aldactone] 25 mg PO DAILY #30 tablet Diet: Low Sodium Activity Restrictions: Activity as Tolerated Shower Restrictions: No Driving Restrictions: No Assistance Devices: Cane Weight Bearing: Full Weight Instruction Topics: Hypertension Control, Hypertension Dc Additional Instructions or Follow Up instructions: You were admitted with uncontrolled hypertension. Your medications were adjusted after interpreting an echocardiogram. Attempts to contact Dr. Wills were made by me. I did have a chance to review your medications with our Infection Preventionist here who agreed with the changes. I will fax a copy of my discharge summary to Dr. Wills as well as your Echocardiogram and any imaging. You were found to have pulmonary hypertension and the best medication for this is called Spironolactone. Also to ease the work load for your heart you should take a small dose of lasix, which is a good compliment to the Spironolactone. You had complaints of intermittent chest pain and all cardiac enzymes were found to be negative. The echocardiogram also showed no acute changes leading us to believe that you have not suffered any heart damage. A chest CT was completed since you had an injury to your chest as well as high blood pressure. There were no blood clots, pneumonia or abnormal findings within your lung rene. You were found to have an enlarged right thyroid lobe, so an ultrasound of your neck was ordered to be completed before you leave today. I checked a thyroid lab today, which was normal. You also complained of dizziness when you first arrived in the ED. We talked about you avoiding the use of your Clonazepam as this could be causing dizziness. You should avoid salty foods, such as foods from a can or a box due to your fluid balance issues. You may qualify for Cardiac rehabilitation that are held in this building at our [facility] clinic. Here, you would learn about low sodium food choices, mild exercises to maximize heart function, and for some people this is a great social outing. Check with your PCP about getting this set up. Please see Angelika White in about one week as a follow up to this stay and she will also get a copy of my discharge summary. Follow-Up Care: [facility] - Cardiac No Smoking: If you smoke, Please STOP! Call for help. Follow-up with: Angelika White MD [Primary Care Provider] -
--- NOTE | 2017-12-26 10:51 | DISCHARGE SUMMARY ---
Discharge Summary Admit Date: 12/25/17 Discharge Date: 12/26/17 Discharging Provider: SARAH Adams Primary Care Provider: Angelika hWite Code Status: Do Not Attempt Resuscitation Condition at Discharge: Good Discharge Disposition: 01 Home, Self Care - DIAGNOSES Admission Diagnoses: Chest pain, unspecified (R07.9) Essential (primary) hypertension (I10) Unspecified atrial fibrillation (I48.91) Hypo-osmolality and hyponatremia (E87.1) Hypokalemia (E87.6) Discharge Diagnoses with Status of Each Condition: Hypertension (I10) -chronic, new treatment to continue. Atrial fibrillation (I48.91) -chronic, stable. Hypertensive crisis (I16.9) -resolved. Weakness (R53.1) -resolved. H/O chest wall injury (Z87.828) -improved, stable. Enlarged thyroid (E04.9) -chronic, US ordered and pending. Pulmonary hypertension (I27.20) -new on this admit, treatment to continue. Acute hyponatremia (E87.1) -resolved. Hypokalemia (E87.6) -resolved. - HPI History of Present Illness: HPI per Dr. Kan: Patient is a very pleasant 82-year-old gentleman with a past medical history significant for hypertension, status post pacemaker due to bradycardia, BPH, atrial fibrillation on Pradaxa and vertigo who presented to the emergency department with a chief complaint of chest pain. The patient states that on December 11 he had a fall due to feeling vertigo and having difficulty with his balance. He states that he fell on his chest and thinks he may have sprained a muscle or hurt her rib. He states that since then he has been experiencing pain in the lower chest wall on the left side near 1 of his ribs. He states that the pain has been getting better over the last 2 weeks or so. He states that today he was scrubbing the floor when he noticed that the chest pain became more pronounced. He states that when he tried to get up he felt very weak and just did not feel right. He denies any radiation of the pain, he denies any associated shortness of breath, denies any nausea, he denies any diaphoresis and denies any palpitations. He states that he then checked his blood pressure and it was very elevated at 180/110. He states he then decided to take an aspirin and for nitroglycerin. He states he tried to go to bed hoping that the pain and funny feeling would resolve. He states that he could not sleep thinking whether he should go to the emergency department. He finally decided to call 911. The patient states that his chest pain persisted and even after EMS arrived and he received several more doses of nitroglycerin his pain did not completely resolve but he did feel that it improved slightly. He states that the chest pain was probably only a 4 out of 5 out of 10 at its worst. He describes the pain as a dull pain. He states that it still there when he takes a deep breath but states that at this point it is almost gone. Patient admits to a headache after receiving many doses of nitroglycerin. Denies any blurred vision, runny nose, sore throat, nasal congestion, difficulty swallowing, shortness of air, cough, fevers, chills, orthopnea, PND, increased lower extremity swelling, abdominal pain, nausea, vomiting, diarrhea, constipation, urinary urgency, dysuria, joint pain, joint swelling, muscle aches , back pain, neck stiffness, skin rash, hair loss, polyuria, polydipsia, night sweats, recent unintentional weight loss, changes in his appetite or any focal neurologic deficits. On presentation to the emergency department the patient was afebrile he did not appear to be in any respiratory distress but was hypertensive with blood pressure of 189/115. The patient was given a dose of nitroglycerin in the emergency department and slowly the patient's blood pressure did improve down to 129/90. The patient underwent a EKG which compared to his EKG from 4 years ago showed some T-wave inversions and flattening in the anterior leads. Otherwise the EKG was paced. The patient's lab work revealed a normal d-dimer, normal CBC, slightly decreased potassium and a mild hyponatremia. The patient had a negative troponin. Given the patient's risk factors of age and hypertension it was felt that the patient should be placed in observation for rule out of acute coronary syndrome and stress test. - HOSPITAL COURSE Hospital Course: The following diagnoses were prevalent during this hospital stay: (1) Hypertensive crisis, unspecified The patient has an extensive home medication list that includes; Metoprolol succinate BID, isosorbide, HCTZ/triamterine, lisinopril and NTG SL as needed upon admission. An updated medication list was obtained from his primary preventative maintenance technician and it appears that he is on felodipine as well. Hydralazine was scheduled QID, and changed to BID upon discharge. Metoprolol was left as is, lisinopril was reduced to 20mg, furosemide and Spironolactone was added, triamterine/HCTZ was discontinued, isosorbide was increased to 60mg and felodipine was decreased to 2.5. New prescriptions were sent to the patient's pharmacy of [facility] in [place]. At the time of admission the patient was found to be severely hypertensive with a max B/P of 209/98, that was reduced to a more tolerable value of 166/90 prior to discharge. The patient denies associated symptoms such as head ache, palpitations, dizziness or diaphoresis. The patient was thought to be in stable condition at the time of discharge and claimed to have an improved state of being. (2) Atrial fibrillation The patient has a long history of this and has an implanted pacemaker in place. He takes Pradaxa at home, which continued here, and has several scattered bruises on bilateral arms. He is rate controlled with metoprolol succinate BID at home, which continued here. (3) Hypertension Bill has had elevated blood pressures since the time of admission with the highest value being 209/98 and just prior to discharge his blood pressure was more normalized to 144/64. A head CT to rule out stroke was completed. I was called by reading radiologist who stated that this CT was negative for evidence of stroke. A chart review shows past imaging of a renal US, which indicates previous uncontrolled B/P. He takes several medications at home including isosorbide, HCTZ/triamterene, lisinopril, felodipine, and metoprolol. I will summarize the new cardiac related medication list that was altered to maximize overall heart function: Hydralazine- was added while inpatient and this was continued for out patient use. Spironolactone- new on this admit based on echo results. Furosemide- new on this admit for generalized edema to compliment Spironolactone. Felodipine- Based on echo results that shows moderate diastolic dysfunction and was reduced from 5mg to 2.5mg. Lisinopril- Based on echo results that shows moderate DD, was reduced by half from 40mg to 20mg. Isosorbide- was doubled from 30mg to 60mg for ongoing borderline HTN. Metoprolol- remained the same and is very beneficial. Triamterene/HCTZ- was discontinued as Spirololactone and furosemide is an ideal treatment in the setting of severe pulmonary hypertension. (4) Weakness The patient relates this new weakness to his elevated B/P's, but also states that he is worried about a stroke. A head CT was negative for a stroke. All troponins have been negative. As the patient's fluid status improved, so did the complaints of weakness. This is considered to be resolved upon discharge. (5) H/O chest wall injury Bill admits to falling at least 2 weeks ago and sustained a soft tissue injury that was quite painful at first, and now has been intermittent. He has not gotten a medical evaluation for this until this admission. He has not had any oxygen requirements and no new cough has been reported. Chest CT to rule out PE /evaluate extent of recent chest wall injury was ordered and showed no rib fractures, no interstitial fluid, or evidence of pulmonary emboli. (6) Pulmonary hypertension Preliminary results of a bed side echo reveal an elevated PA pressure with an RVSP at rest of 69mmHg. Upon exam the patient has a rounded, soft abdomen, and mild dependent BLE edema. He was taking triamterene/HCTZ previous to this admit , that has now been discontinued and replaced with furosemide and Spironolactone based on this diagnosis. The patient claims to "feel less bloated" prior to discharge. (7) Enlarged thyroid A chest CT was completed which showed an enlarged right thyroid lobe. A soft tissue neck ultrasound is pending. The patient did not want to stay an additional 45 minutes for this test, so he was encouraged to follow up with his PCP. (6) Hyponatremia Patient presented with hyponatremia with a sodium of 132. The patient was likely hypovolemic, causing this hyponatremia. The patient was given IV fluids, and daily CMPs were ordered. The patient's sodium reached a low of 130, but returned to near normal by the time of discharge to 133. The patient did not demonstrate any confusion. This variation may be due to minor fluid shifts/ imbalances. This is considered to be resolved upon discharge. (7) Hypokalemia Patient had mild hypokalemia on presentation with a potassium of 3.2. Patient likely has hyponatremia secondary to hydrochlorothiazide. The patient was also noted to be slightly dehydrated upon admission and was given IV fluids and potassium replacement. On day #2 of his stay, the patient's medications were changed, which influence electrolytes. Prior to discharge the potassium was normalized at 3.7. This is considered to be resolved upon discharge. Disposition: The patient claimed to be feeling much better and did not require oxygen upon discharge. His presenting primary complaint of weakness and high blood pressure are considered to be managed and resolved. He agreed to picker and sorter load and unload his prescription before returning home and see his PCP within one week. - ALLERGIES Allergies/Adverse Reactions: Allergies Allergy/AdvReac Type Severity Reaction Status Date / Time penicillin G Allergy Intermediate Rash Verified 12/25/17 02:47 losartan [Losartan] AdvReac Itching Verified 12/25/17 02:47 adhesives Allergy Intermediate Itching Uncoded 12/25/17 02:47 - MEDICATIONS Home Medications: Ambulatory Orders Medication Instructions Recorded Confirmed Finasteride 5 mg PO DAILY 02/19/15 12/25/17 Dabigatran Etexilate Mesylate 150 mg PO BID 12/25/17 12/25/17 [Pradaxa] Metoprolol Succinate 50 mg PO BID 12/25/17 12/25/17 Nitroglycerin [Nitrostat] 0.4 mg SL Q5MIN PRN 12/25/17 12/25/17 Omeprazole 20 mg PO DAILY PRN 12/25/17 12/25/17 Felodipine [Plendil] 2.5 mg PO DAILY #30 tablet 12/26/17 Furosemide [Lasix] 20 mg PO DAILY #30 tablet 12/26/17 Isosorbide Mononitrate ER [Imdur] 60 mg PO DAILY #30 tablet 12/26/17 Lisinopril 20 mg PO DAILY #30 tablet 12/26/17 Nitroglycerin [Nitrostat] 0.4 mg SL Q5MIN PRN tablet 12/26/17 Spironolactone [Aldactone] 25 mg PO DAILY #30 tablet 12/26/17 hydrALAZINE [Apresoline] 25 mg PO BID #60 tablet 12/26/17 - PHYSICAL EXAM AT DISCHARGE General Appearance: positive: No acute distress, Alert Eyes Bilateral: positive: Normal inspection, PERRL ENT: positive: ENT inspection nml, Pharynx nml, No signs of dehydration, Other ( profound SHISHMAREF IRA) Neck: positive: Trachea midline, Thyromegaly (as per imaging, enlarged right thyroid-can appreciate on exam.) Respiratory: positive: Chest non-tender, No respiratory distress, Other ( scattered crackles in bilateral low lobes.) Cardiovascular: positive: Irregularly irregular, Systolic murmur, Decreased pulse(s) Peripheral Pulses: positive: 1+ Abdomen: positive: Non-tender, Nml bowel sounds, Other (rounded, soft) Back: positive: Nml inspection Skin: positive: No rash, Warm, Dry, Other (multiple bruises in BUE due to chronic anticoagulation) Extremities: positive: Non-tender, Full ROM, Pedal edema (chronic BLE, dependent and less than yesterday.), Joint swelling Neurologic/Psychiatric: positive: Oriented x3, CN's nml (2-12), Motor nml, Sensation nml, Weakness, Depressed mood/affect, Other (profound SHISHMAREF IRA) Reflexes: Bicep (R): 3+, Bicep (L): 3+, Ankle (R): 2+, Ankle (L): 2+ - LABS Result Diagrams: 12/26/17 05:25 12/26/17 05:25 - DIAGNOSTIC IMAGING Diagnostic Imaging Results: Final report reviewed Diagnostic Imaging Results Comments: EXAM: CHEST RADIOGRAPHY EXAM DATE: 12/25/2017 03:02 AM. CLINICAL HISTORY: Chest pain. COMPARISON: 04/28/2014. TECHNIQUE: 1 view. FINDINGS: Lungs/Pleura: No focal opacities evident. No pleural effusion. No pneumothorax. Mediastinum: Within exam limitations, the cardiomediastinal contour is normal. Other: New left subclavian pacemaker. IMPRESSION: No evidence of acute cardiopulmonary disease. EXAM: CT HEAD EXAM DATE: 12/25/2017 11:49 AM. CLINICAL HISTORY: Hypertension. Acute neurologic deficit. COMPARISON: None. TECHNIQUE: Multiaxial CT images were obtained from the foramen magnum to the vertex. Reformats: Coronal. IV contrast: None. In accordance with CT protocol optimization, one or more of the following dose reduction techniques were utilized for this exam: automated exposure control, adjustment of mA and/or KV based on patient size, or use of iterative reconstructive technique. FINDINGS: Parenchyma: No intraparenchymal hemorrhage. No evidence of mass, midline shift, or CT findings of acute infarction. May-white differentiation is distinct. Diffuse chronic microangiopathic white matter changes are evident. Extraaxial Spaces: Normal for age. No subdural or epidural collections identified. Ventricles: The ventricles and cortical sulci are enlarged, consistent with age- related tissue loss. Sinuses and orbits: Imaged paranasal sinuses, orbits, and mastoids show no significant abnormality. Bones: No evidence of fracture or calvarial defect. Other: None. IMPRESSION: Generalized age-related cortical atrophic changes without evidence of acute intracranial abnormality. CT ANGIOGRAM OF THE CHEST: 12/25/2017 HISTORY: Chest pain. COMPARISON: Chest x-ray 12/25/2017. CONTRAST: 80 mL of Isovue 300. TECHNIQUE: Axial images of the chest with multiplanar reformations including MIP projections. FINDINGS: Markedly enlarged right lobe of the thyroid with mediastinal/tracheal shift to the left. No hilar, mediastinal, axillary, or supraclavicular adenopathy. No findings of pulmonary embolism. Included portions of the upper abdomen unremarkable. Hypoventilatory changes in the lungs. No pulmonary nodules , pleural effusion or focal consolidation. No aortic aneurysm or dissection. Degenerative change in the spine without bone destruction. No definite rib fracture identified. IMPRESSION: NEGATIVE FOR PULMONARY EMBOLISM. GROSSLY CLEAR LUNGS. MARKEDLY ENLARGED RIGHT LOBE OF THE THYROID. SUGGEST CORRELATION WITH THYROID ULTRASOUND. ECHOCARDIOGRAM 12/25/17-Final 1. Mild concentric LVH with normal systolic function, EF 55%. There is moderate diastolic dysfunction and the LA is severely dilated. 2. Normal RV size and function despite severe pulmonary hypertension, PASP 69 mmHg. 3. Mildly sclerotic aortic valve. SOFT TISSUE NECK US- ordered and pending 12/26/17 - FOLLOW UP Follow Up: Condition: Good Prescriptions: Felodipine [Plendil] 2.5 mg PO DAILY #30 tablet Furosemide [Lasix] 20 mg PO DAILY #30 tablet hydrALAZINE [Apresoline] 25 mg PO BID #60 tablet Isosorbide Mononitrate ER [Imdur] 60 mg PO DAILY #30 tablet Lisinopril 20 mg PO DAILY #30 tablet Spironolactone [Aldactone] 25 mg PO DAILY #30 tablet Diet: Low Sodium Activity Restrictions: Activity as Tolerated Shower Restrictions: No Driving Restrictions: No Assistance Devices: Cane Weight Bearing: Full Weight Additional Instructions or Follow Up instructions: You were admitted with uncontrolled hypertension. Your medications were adjusted after interpreting an echocardiogram. Attempts to contact Dr. Wills were made by me. I did have a chance to review your medications with our Drilling Field Operator here who agreed with the changes. I will fax a copy of my discharge summary to Dr. Wills as well as your Echocardiogram and any imaging. You were found to have pulmonary hypertension and the best medication for this is called Spironolactone. Also to ease the work load for your heart you should take a small dose of lasix, which is a good compliment to the Spironolactone. You had complaints of intermittent chest pain and all cardiac enzymes were found to be negative. The echocardiogram also showed no acute changes leading us to believe that you have not suffered any heart damage. A chest CT was completed since you had an injury to your chest as well as high blood pressure. There were no blood clots, pneumonia or abnormal findings within your lung rene. You were found to have an enlarged right thyroid lobe, so an ultrasound of your neck was ordered to be completed before you leave today. I checked a thyroid lab today, which was normal. You also complained of dizziness when you first arrived in the ED. We talked about you avoiding the use of your Clonazepam as this could be causing dizziness. You should avoid salty foods, such as foods from a can or a box due to your fluid balance issues. Please see Angelika White in about one week as a follow up to this stay and she will also get a copy of my discharge summary. - TIME SPENT Time Spent in Discharge (Minutes): 60
[2017-12-26 12:35] VITALS: BP 144/64
== END 2017-12-26 12:54 | disposition home or self-care (01) | DRG 305 ==
LOC: EDUNIT# → SUPCPDRO 02:39 → ED 02:39 → MS2 03:53 → UNDOADMOB 03:53 → OBSVTOIN 15:42 → INTOOBSV 12-26 08:48 → UNDODISIN 12-26 12:54
PROVIDERS: ADMIT Internal Medicine; ATTEND Nurse Practitioner
DX: I16.9 Hypertensive crisis, unspecified (principal); E87.1 Hypo-osmolality and hyponatremia; I10 Essential (primary) hypertension; I11.9 Hypertensive heart disease without heart failure; I48.2 Chronic atrial fibrillation; R53.1 Weakness; E04.9 Nontoxic goiter, unspecified; I27.20 Pulmonary hypertension, unspecified; E87.6 Hypokalemia; E86.1 Hypovolemia; E86.0 Dehydration; Z87.891 Personal history of nicotine dependence; Z66 Do not resuscitate; T50.2X5A Adverse effect of carbonic-anhydrase inhibitors, benzothiadiazides and other diuretics, initial encounter; R07.89 Other chest pain; N40.0 Benign prostatic hyperplasia without lower urinary tract symptoms; Z95.0 Presence of cardiac pacemaker; R42 Dizziness and giddiness; Z79.01 Long term (current) use of anticoagulants; H91.90 Unspecified hearing loss, unspecified ear; Z91.81 History of falling; Z79.899 Other long term (current) drug therapy; S29.9XXA Unspecified injury of thorax, initial encounter; W19.XXXA Unspecified fall, initial encounter
CPT/HCPCS: 36415; 70450; 71045; 71275; 80048; 80053; 80061; 81001; 81003; 83690; 83721; 83735; 83880; 84100; 84443; 84484; 85025; 85379; 87086; 93005; 93306; 96360; 96361; 99284

== ENCOUNTER 2018-06-08 09:52 | Outpatient (CLI) | payer MEDICARE ==
[2018-06-08 10:25] LABS: BASOPHILS # (AUTO) 0.1 10^3/uL (0.0-0.1); BASOPHILS % (AUTO) 1.2 %; EOSINOPHILS # (AUTO) 0.2 10^3/uL (0.0-0.7); EOSINOPHILS % (AUTO) 4.3 %; HGB - HEMOGLOBIN 14.8 g/dL (14.0-18.0); LYMPHOCYTES # (AUTO) 1.9 10^3/uL (1.5-3.5); LYMPHOCYTES % (AUTO) 35.4 %; MEAN CORPUSCULAR HEMOGLOBIN 35.3 pg (27.0-31.0); MEAN CORPUSCULAR VOLUME 100.6 fL (80.0-94.0); MEAN PLATELET VOLUME 9.3 fL (7.4-11.4); MONOCYTES # (AUTO) 0.6 10^3/uL (0.0-1.0); MONOCYTES % (AUTO) 10.2 %; NEUTROPHILS # (AUTO) 2.7 10^3/uL (1.5-6.6); NEUTROPHILS % (AUTO) 48.9 %; PLT - PLATELET COUNT 156 10^3/uL (130-450); WHITE BLOOD COUNT 5.5 x10^3/uL (4.8-10.8)
[2018-06-08 10:28] LABS: ALBUMIN 4.2 g/dL (3.2-5.5); ALBUMIN/GLOBULIN RATIO 1.4 (1.0-2.2); ALKALINE PHOSPHATASE 62 IU/L (42-121); ALT ALANINE AMINOTRANSFERASE 33 IU/L (10-60); AST ASPARTATE AMINOTRANSFERASE 29 IU/L (10-42); BILIRUBIN,TOTAL 1.1 mg/dL (0.2-1.0); BUN - BLOOD UREA NITROGEN 29 mg/dL (6-20); CALCIUM 8.8 mg/dL (8.5-10.3); CARBON DIOXIDE - CO2 26 mmol/L (21-32); CHLORIDE 105 mmol/L (101-111); CHOL/HDL RATIO 4.6 (<5.0); CHOLESTEROL 165 mg/dL; CREATININE 1.2 mg/dL (0.6-1.2); GFR - MDRD 58 (>89); GLUCOSE 106 mg/dL (70-100); HDL CHOLESTEROL 36 mg/dL; LDL CHOLESTEROL,CALCULATED 108 mg/dL; SODIUM 139 mmol/L (135-145); TOTAL PROTEIN 7.1 g/dL (6.7-8.2); VLDL CHOLESTEROL 21 mg/dL
[2018-06-08 11:18] LABS: BILIRUBIN,URINE NEGATIVE (NEGATIVE); GLUCOSE, URINE (UA) NEGATIVE (NEGATIVE); KETONES,URINE (UA) NEGATIVE (NEGATIVE); LEUKOCYTE ESTERASE, URINE NEGATIVE (NEGATIVE); NITRITE,URINE NEGATIVE (NEGATIVE); OCCULT BLOOD,URINE NEGATIVE (NEGATIVE); PROTEIN,URINE NEGATIVE (NEGATIVE); UROBILINOGEN,URINE 0.2 (NORMAL) E.U./dL (NORMAL)
[2018-06-08 11:22] LABS: CLARITY,URINE CLEAR (CLEAR)
[2018-06-08 11:28] LABS: BACTERIA,URINE Rare /HPF (None Seen); RBC,URINE 0-5 /HPF (0-5); SQUAMOUS EPITHELIAL CELL,UR RARE Squamous (<= Few)
== END 2018-06-08 09:53 | disposition home or self-care (01) ==
LOC: LAB 09:52
PROVIDERS: ATTEND Internal Medicine
DX: N40.0 Benign prostatic hyperplasia without lower urinary tract symptoms (principal)
CPT/HCPCS: 36415; 80053; 80061; 81001; 83721; 84153; 84443; 85025; 87086

== ENCOUNTER 2018-10-25 11:45 | Outpatient (CLI) | payer MEDICARE ==
--- NOTE | 2018-10-25 12:37 | XRAY Report ---
Reason: COUGH Procedure Date: 10/25/2018 Accession Number: [id number] / [id number] Procedure: XR - Chest 2 View X-Ray CPT Code: 68315 FULL RESULT: EXAM: CHEST RADIOGRAPHY EXAM DATE: 10/25/2018 11:49 AM. CLINICAL HISTORY: Cough. COMPARISON: CHEST 1 VIEW 12/25/2017 2:50 AM. CHEST 2 VIEW PA/LAT 04/24/2014 2:44 AM. CHEST ANGIO 12/25/2017 11:55 AM. TECHNIQUE: 2 views. FINDINGS: Lungs/Pleura: No focal opacities evident. No pleural effusion. No pneumothorax. Normal volumes. Mediastinum: Heart size and hilar contours are stable and within normal limits. There is stable leftward tracheal deviation from thyroid goiter. Other: Stable appearance of dual-lead left pectoral pacing device. Stable degenerative arthrosis of the shoulder joints left greater than right. IMPRESSION: Normal 2-view chest radiography. RADIA The call report notification system was initiated by Dr. Arturo Payne at 12:26 PM on 10/25/2018.
== END 2018-10-25 11:46 | disposition home or self-care (01) ==
LOC: DI 11:45
PROVIDERS: ATTEND Internal Medicine
DX: R05 Cough (principal)
CPT/HCPCS: 71046

== ENCOUNTER 2019-02-18 17:50 | Outpatient (CLI) | payer MEDICARE | END 2019-02-18 17:51 | disposition critical access hospital (66) | LOC: EMS 17:50 | PROVIDERS: ATTEND Surgery | DX: R11.10 Vomiting, unspecified (principal); R10.9 Unspecified abdominal pain | CPT/HCPCS: A0425; A0429 ==

== ENCOUNTER 2019-02-18 18:00 | Emergency (ER) | payer MEDICARE ==
--- NOTE | 2019-02-18 18:15 | ED Physician Documentation ---
PD HPI NVD - Stated complaint Stated Complaint: N/V - Chief complaint Chief Complaint: Abd Pain - History obtained from History obtained from: Patient - History of Present Illness Timing - onset: Today (Vomiting all day today. Has H/O hiatal hernia, and has similar episodes in the past but usually resolve quickly but this one has been going on all day/12 hours. Similar episodes but less severe about 4 times / year. Had nl BM at 10am.) Review of Systems Constitutional: denies: Fever, Chills Cardiac: denies: Chest pain / pressure, Palpitations Respiratory: denies: Dyspnea, Cough GI: denies: Abdominal Pain Musculoskeletal: denies: Neck pain, Back pain Neurologic: denies: Headache, Head injury, LOC PD PAST MEDICAL HISTORY - Past Medical History Past Medical History: No Cardiovascular: Hypertension, Atrial fibrillation, Other Respiratory: None Neuro: None Endocrine/Autoimmune: Other GI: Other : Benign prostate hypertrophy HEENT: Chronic hearing loss, Other Psych: None Musculoskeletal: Osteoarthritis Derm: Other - Past Surgical History Past Surgical History: Yes General: Appendectomy, Colonoscopy Ortho: Arthroscopic surgery Cardiovascular: Pacemaker HEENT: Tonsil/Adenoidectomy - Present Medications Home Medications: Ambulatory Orders Medication Instructions Recorded Confirmed Finasteride 5 mg PO DAILY 02/19/15 02/18/19 Metoprolol Succinate 50 mg PO BID 12/25/17 02/18/19 Omeprazole 20 mg PO DAILY PRN 12/25/17 02/18/19 Isosorbide Mononitrate ER [Imdur] 60 mg PO DAILY #30 tablet 12/26/17 02/18/19 Nitroglycerin [Nitrostat] 0.4 mg SL Q5MIN PRN tablet 12/26/17 02/18/19 Spironolactone [Aldactone] 25 mg PO DAILY #30 tablet 12/26/17 02/18/19 Rivaroxaban [Xarelto] 20 mg PO DAILY 02/18/19 02/18/19 - Allergies Allergies/Adverse Reactions: Allergies Allergy/AdvReac Type Severity Reaction Status Date / Time penicillin G Allergy Intermediate Rash Verified 02/18/19 18:05 losartan [Losartan] AdvReac Itching Verified 02/18/19 18:05 adhesives Allergy Intermediate Itching Uncoded 02/18/19 18:05 - Social History Does the pt smoke?: No Smoking Status: Former smoker Does the pt drink ETOH?: Yes Does the pt have substance abuse?: No - Family History Family history: reports: Non contributory - Immunizations Immunizations are current?: Yes - POLST Patient has POLST: No POLST Status: DNR PD ED PE NORMAL - Vitals Vital signs reviewed: Yes - General General: Alert and oriented X 3, No acute distress Results - Vitals Vitals: Vital Signs - 24 hr 02/18/19 02/18/19 17:59 19:58 Temperature 36.8 C 36.7 C Heart Rate 59 L 63 Respiratory 16 16 Rate Blood Pressure 182/85 H 133/90 H O2 Saturation 98 95 Oxygen O2 Source Room air - EKG (time done) 1759 Rate: Rate (enter#) (79) Rhythm: Paced (atrial sensed v-paced) Computer interpretation: Agree with computer - Labs Labs: Laboratory Tests 02/18/19 02/18/19 02/18/19 18:35 18:35 18:35 WBC 8.2 RBC 4.44 L Hgb 15.3 Hct 46.1 MCV 103.8 H MCH 34.5 H MCHC 33.2 RDW 11.8 L Plt Count 175 MPV 11.5 H Neut # (Auto) 6.2 Lymph # (Auto) 1.5 [place] # (Auto) 0.5 Eos # (Auto) 0.1 Baso # (Auto) 0.1 Absolute Nucleated RBC 0.00 Nucleated RBC % 0.0 PT 16.4 H INR 1.5 H Sodium 145 Potassium 4.1 Chloride 106 Carbon Dioxide 22 Anion Gap 17.0 H BUN 32 H Creatinine 1.3 H Estimated GFR (MDRD) 53 L Glucose 109 H Calcium 9.4 Total Bilirubin 1.6 H AST 32 ALT 34 Alkaline Phosphatase 60 Total Protein 7.4 Albumin 4.7 Globulin 2.7 Albumin/Globulin Ratio 1.7 Lipase 23 PD MEDICAL DECISION MAKING - ED course ED course: This is an 83-year-old gentleman with a known hiatal hernia who started vomiting this morning while eating some chicken. Although he does not necessarily feel like he has an esophageal food obstruction his inability to swallow his own secretions, and Immediate vomiting after trying to eat or drink anything is suggestive of an obstructive physiology of the esophagus. He has no abdominal pain. No other complaints to really raise a concern for alternative diagnoses for the vomiting in this elderly gentleman. After the administration of glucagon and Reglan he had no relief. Subsequent to that he was administered nitroglycerin. I also reviewed old records, he said several chest x-rays and a CAT scan of his chest showing no evidence of a hiatal hernia. I asked him what the diagnosis of hiatal hernia was based upon, he said that he had an endoscopy 30 years potentially showing this. Subsequent that he actually started tolerating fluids and therefore the CT that I had ordered was canceled. He understands he needs a follow-up endoscopy and should be on soft diet until then. Departure - Departure Disposition: 01 Home, Self Care Clinical Impression: Esophageal obstruction Condition: Stable Record reviewed to determine appropriate education?: Yes Instructions: ED Foreign Body Esophageal Rslv Follow-Up: Bonny Mcmanus MD [Provider Admit Priv/Credential] - Within 3 Days Comments: As discussed, you should have a soft liquid diet until you follow-up for the endoscopy. Return for new or worsening symptoms. Take your omeprazole daily. You do need a follow-up endoscopy, call the surgeon listed on this form to gisele knapp for an appointment.
[2019-02-18] MEDS ORDERED: METOCLOPRAMIDE 10 MG/2 ML VIAL IVP STA (18:17)
[2019-02-18] MEDS ORDERED: SODIUM CHLORIDE 0.9% 500 ML IV ONE (18:17)
[2019-02-18] MEDS ORDERED: GLUCAGON 1 MG/ML VIAL IVP STA (18:24)
[2019-02-18 18:45] LABS: BASOPHILS # (AUTO) 0.1 10^3/uL (0.0-0.1); BASOPHILS % (AUTO) 0.6 %; EOSINOPHILS # (AUTO) 0.1 10^3/uL (0.0-0.7); EOSINOPHILS % (AUTO) 0.6 %; HGB - HEMOGLOBIN 15.3 g/dL (14.0-18.0); LYMPHOCYTES # (AUTO) 1.5 10^3/uL (1.5-3.5); MEAN CORPUSCULAR HEMOGLOBIN 34.5 pg (27.0-31.0); MEAN CORPUSCULAR HGB CONC 33.2 g/dL (32.0-36.0); MEAN CORPUSCULAR VOLUME 103.8 fL (80.0-94.0); MEAN PLATELET VOLUME 11.5 fL (7.4-11.4); MONOCYTES # (AUTO) 0.5 10^3/uL (0.0-1.0); MONOCYTES % (AUTO) 5.9 %; NEUTROPHILS # (AUTO) 6.2 10^3/uL (1.5-6.6); NEUTROPHILS % (AUTO) 74.7 %; PLT - PLATELET COUNT 175 10^3/uL (130-450); RED BLOOD COUNT 4.44 10^6/uL (4.70-6.10); RED CELL DISTRIBUTION WIDTH 11.8 % (12.0-15.0); WHITE BLOOD COUNT 8.2 x10^3/uL (4.8-10.8)
[2019-02-18] MEDS ORDERED: WATER FOR INJECTION,STERILE 10 ML ONE ×2 (18:51→19:02)
[2019-02-18 18:52] LABS: INR 1.5 (0.8-1.2); PT - PROTHROMBIN TIME 16.4 secs (9.9-12.6)
[2019-02-18 18:53] LABS: ALBUMIN 4.7 g/dL (3.2-5.5); ALBUMIN/GLOBULIN RATIO 1.7 (1.0-2.2); BILIRUBIN,TOTAL 1.6 mg/dL (0.2-1.0); CALCIUM 9.4 mg/dL (8.5-10.3); CREATININE 1.3 mg/dL (0.6-1.2); TOTAL PROTEIN 7.4 g/dL (6.7-8.2)
[2019-02-18] MEDS ORDERED: NITROGLYCERIN SL 0.4 MG TABLET SL STA (19:05)
[2019-02-18] MEDS ORDERED: IOVERSOL 320 50 ML VIAL ONE (20:24)
[2019-02-18] MEDS ORDERED: IOVERSOL 320 100 ML VIAL IVP ONE (20:25)
[2019-02-18 21:02] VITALS: BP 141/94
== END 2019-02-18 21:08 | disposition home or self-care (01) ==
LOC: EDUNIT# → ED 18:00
DX: T18.128A Food in esophagus causing other injury, initial encounter (principal); X58.XXXA Exposure to other specified factors, initial encounter; K44.9 Diaphragmatic hernia without obstruction or gangrene; I10 Essential (primary) hypertension; Z95.0 Presence of cardiac pacemaker; Z79.01 Long term (current) use of anticoagulants; Z87.891 Personal history of nicotine dependence; Z66 Do not resuscitate
CPT/HCPCS: 36415; 80053; 83690; 85025; 85610; 96374; 96375; 99281; 99284; A9270; J2765; 93005

== ENCOUNTER 2019-04-02 07:36 | Day surgery (SDC) | payer MEDICARE ==
[2019-04-02] MEDS ORDERED: fentaNYL 100 MCG/2 ML VIAL IVP ONE (07:37)
[2019-04-02] MEDS ORDERED: MIDAZOLAM 2 MG/2 ML VIAL IVP ONE (07:37)
[2019-04-02] MEDS ORDERED: LACTATED RINGERS 1,000 ML IV ONE (08:07)
[2019-04-02] MEDS ORDERED: LIDO GARGLE 30 ML BOTTLE ONE (09:19)
[2019-04-02] MEDS ORDERED: LIDO GARGLE 30 ML BOTTLE PO ONE (09:22)
[2019-04-02 10:55] VITALS: BP 119/62
== END 2019-04-02 07:37 | disposition home or self-care (01) ==
LOC: SDS 07:36
PROVIDERS: ATTEND Surgery
PROC: 0DB78ZX Excision of Stomach, Pylorus, Via Natural or Artificial Opening Endoscopic, Diagnostic (ICD-10-PCS; 2019-04-02)
PROC: 0DB48ZX Excision of Esophagogastric Junction, Via Natural or Artificial Opening Endoscopic, Diagnostic (ICD-10-PCS; 2019-04-02)
PROC: 0DB98ZX Excision of Duodenum, Via Natural or Artificial Opening Endoscopic, Diagnostic (ICD-10-PCS; principal; 2019-04-02 09:00)
DX: R13.10 Dysphagia, unspecified (principal); R11.10 Vomiting, unspecified; K29.70 Gastritis, unspecified, without bleeding; K25.9 Gastric ulcer, unspecified as acute or chronic, without hemorrhage or perforation; K20.9 Esophagitis, unspecified
CPT/HCPCS: 43239; 88305; A9270; J7120